=== PATIENT | female | born 1990 | race Caucasian/White ===

== ENCOUNTER 2021-02-10 15:13 | Emergency (ER) | payer OTHER, SELFPAY ==
--- NOTE | ~2021-02-10 | US_ITS ---
US pelvic complete w TV DATE: 02/10/2021 18:53 INDICATION: Right lower quadrant pain, vaginal bleeding. Asymmetric right ovarian enlargement on 01/20 CT abdomen pelvis examination TECHNIQUE: Real-time imaging and Doppler analysis COMPARISON: 02/10/2021 CT abdomen pelvis FINDINGS: The uterus measures 9.8 cm height, 6.6 cm transverse and 5.4 cm AP dimension. Central endom etrial echo complex measures 5 mm AP dimension. A 2.9 cm right ovarian cyst is noted. Right ovary measures 3.8 x 3.4 x 2.8 cm. The left ovary measures 2 x 1.7 x 2 cm. There is blood flow to both ovaries. IMPRESSION: 2.9 cm right ovarian cyst; no evidence of ovarian torsion Reviewed, dictated and finalized at [facility]. Reviewed, dictated and finalized at location A.
--- NOTE | ~2021-02-10 | CT_ITS ---
EXAMINATION: CT abdomen pelvis wo con DATE: 02/10/2021 17:12 INDICATION: Right lower quadrant abdominal pain TECHNIQUE: Computed tomography (CT) of the abdomen and pelvis was performed without intravenous contr ast. Automated exposure control and iterative reconstruction technique were employed. Exam dose: 133 4.07 mGy-cm total exam DLP. COMPARISON: None. FINDINGS: Lung bases are clear. Normal heart size. No pericardial or pleural effusion. The liver, gallbladder, bile ducts, spleen, pancreas, pancreatic duct, and adrenal glands and kidneys are unremarkable. No urinary tract calculus or hydroureteronephrosis. The urinary bladder and uterus and left adnexal areas are unremarkable. Asymmetric prominence of the right ovary which measures up to 2.8 x 3.6 cm dimension. Consider pelvic ultrasound for greater detail. Normal caliber of the abdominal aorta. No intraperitoneal or retroperitoneal or pelvic mass lesion or adenopathy or ascites. Normal appendix. No bowel obstruction, bowel wall thickening, pneumatosis or intraperitoneal free air . Small fat-containing umbilical hernia. Included skeletal structures are unremarkable. IMPRESSION: Nonspecific right ovarian enlargement, measuring up to 2.8 x 3.6 cm; consider pelvic ult rasound correlation Normal appendix Reviewed, dictated and finalized at [facility]. Reviewed, dictated and finalized at location A. IMPRESSION: Nonspecific right ovarian enlargement, measuring up to 2.8 x 3.6 c m; consider pelvic ultrasound correlation Normal appendix
[2021-02-10 15:29] VITALS: BP 140/93; PULSE 54; RESP 18; TEMP 36.6; O2SAT 100
--- NOTE | 2021-02-10 16:07 | ED.GENADULT ---
HPI - General Adult General Chief complaint: Vaginal Bleeding <Joy Gold PA-C - Last Filed: 02/10/21 19:36> Stated complaint: heavy vaginal bleeding, no <Joy Gold PA-C - Last Filed: 02/10/21 19:36> Time Seen by Provider: 02/10/21 15:53 <Joy Gold PA-C - Last Filed: 02/10/21 19:36> Source: patient <Joy Gold PA-C - Last Filed: 02/10/21 19:36> Mode of arrival: ambulatory <JOHANN Norris Last Filed: 02/10/21 19:36> Limitations: no limitations <Joy Gold PA-C - Last Filed: 02/10/21 19:36> History of Present Illness HPI narrative: Patient is here for heavy vaginal bleeding not associated with her period. It started yesterday has progressed from dark red to bright red blood with clots. Is associated with cramping and especially right lower quadrant pain. Her last period was 2 weeks ago. She she states that she also had other signs of such as breast tenderness and nausea. She took a test at home this morning and it was negative. She is not on any form of control, last intercourse was 1 week ago. She has had 2 prior sections. <Joy Gold PA-C - Last Filed: 02/10/21 19:36> Related Data Allergies/adverse reactions: Allergies Allergy/AdvReac Type Severity Reaction Status Date / Time No Known Allergies Allergy Verified 02/10/21 15:19 <Joy Gold PA-C - Last Filed: 02/10/21 19:36> Review of Systems Review of Systems: All systems reviewed & are unremarkable except as noted in HPI and below <Joy Gold PA-C - Last Filed: 02/10/21 19:36> [facility] Past Medical History Medical History: Medical History (Updated 02/11/21 @ 00:00 by Background Daemon) delivery delivered Elbow injury <JOHANN Norris Last Filed: 02/10/21 19:36> Social History Social History: Social History (Updated 02/10/21 @ 17:05 by Joy Gold PA-C) Smoking status: Never smoker Alcohol intake: never Substance use: never Living arrangements: with family Occupation/Education: occupation Additional occupation/education comments: real estate <Joy Gold PA-C - Last Filed: 02/10/21 19:36> Exam Const: General: healthy appearing, no acute distress and alert <Joy Gold PA-C - Last Filed: 02/10/21 19:36> Orientation/consciousness: patient oriented x3 <Joy Gold PA-C - Last Filed: 02/10/21 19:36> HENMT: Head: normal to inspection <Joy Gold PA-C - Last Filed: 02/10/21 19:36> Eyes: Pupils: Equal, round and reactive pupils present <Joy Gold PA-C - Last Filed: 02/10/21 19:36> Resp: Effort & Inspection: normal respiratory effort <Joy Gold PA-C - Last Filed: 02/10/21 19:36> Auscultation: clear to auscultation bilaterally <Joy Gold PA-C - Last Filed: 02/10/21 19:36> Cardio: Rate: regular rate <Joy Gold PA-C - Last Filed: 02/10/21 19:36> Rhythm: regular rhythm <Joy Gold PA-C - Last Filed: 02/10/21 19:36> GI: GI Palp: Yes Soft to palpation and Yes Tenderness to palpation present (GI) (RLQ) <Joy Gold PA-C - Last Filed: 02/10/21 19:36> Auscultation: normal bowel sounds <Joy Gold PA-C - Last Filed: 02/10/21 19:36> : General: Yes no CVA tenderness <Joy Gold PA-C - Last Filed: 02/10/21 19:36> External Female Exam: normal external appearance <JOHANN Norris Last Filed: 02/10/21 19:36> Speculum Exam - Vagina: other (old blood present) <Joy Gold PA-C - Last Filed: 02/10/21 19:36> Speculum Exam - Cervix: normal appearance of the cervix, normal palpation and Cervical os closed <Joy Gold PA-C - Last Filed: 02/10/21 19:36> Bimanual exam- vagina & uterus: normal bimanual exam <Joy Gold PA-C - Last Filed: 02/10/21 19:36> Bimanual Exam- Adnexa, other: normal adnexae and adnexae mobile <Joy Gold PA-C - Last Filed: 02/10/21 19:36> Sk
[2021-02-10 16:10] LABS: Basophils Absolute Auto 0.1 K/mm3 (0.0-0.1); Basophils Percent Auto 0.6 % (0.2-1.2); Eosinophils Absolute Auto 0.1 K/mm3 (0-0.3); Eosinophils Percent Auto 0.8 % (0-4.4); Hematocrit 41.9 % (37.0-47.0); Hemoglobin 14.1 g/dL (12.0-15.0); Immature Granulocyte Absolute 0.05 K/mm3 (0.00-0.031); Immature Granulocyte Percent A 0.4 % (0-0.5); Lymphocytes Percent Auto 30.2 % (18.3-44.2); Mean Corpuscular HGB Conc 33.7 g/dl (32-36); Mean Corpuscular Hemoglobin 30.1 pg (26-34); Mean Corpuscular Volume 89.5 fl (80-100); Mean Platelet Volume 10.2 fl (7.4-10.4); Monocytes Absolute Auto 0.9 K/mm3 (0.1-0.6); Monocytes Percent Auto 7.6 % (2.6-8.5); Neutrophils Absolute Auto 7.2 K/mm3 (1.3-6.7); Neutrophils Percent Auto 60.4 % (45.5-73.1); Platelet Count Result 327 k/mm3 (150-375); Red Blood Count 4.68 M/mm3 (4.2-5.4); Red Cell Distribution Width 12.8 % (11.5-14.5); White Blood Count 11.9 K/mm3 (4.5-10.0)
[2021-02-10 16:49] LABS: Beta HCG Quantitative < 2.39 mIU/ML
[2021-02-10] MEDS: ONDANSETRON INJ 4 MG/2 ML VIAL IV PUSH (18:15)
[2021-02-10 18:48] VITALS: BP 121/67; PULSE 62
[2021-02-10 18:49] VITALS: BP 122/81; PULSE 58
[2021-02-10 18:51] VITALS: BP 111/79; PULSE 66
== END 2021-02-10 20:22 | disposition home or self-care (01) ==
PROVIDERS: Physician Assistant; Emergency Provider General Practice; PCP Family Medicine
DX: N93.9 Abnormal uterine and vaginal bleeding, unspecified (principal); N83.201 Unspecified ovarian cyst, right side
CPT/HCPCS: 36415; 74176; 76830; 76856; 81025; 84702; 85025; 96374; 99284; J2405

== ENCOUNTER 2021-02-23 13:45 | Outpatient (CLI) | payer OTHER, SELFPAY ==
--- NOTE | ~2021-02-23 | US_ITS ---
EXAMINATION: US thyroid EXAM DATE: 02/23/2021 14:41 INDICATION: E07.9 - Disorder of thyroid, unspecified. TECHNIQUE: Multiple grayscale and Doppler images of the thyroid were obtained (by a technologist who performed the scan) and subsequently reviewed. Individual nodules and recommendations may be reporte d in accordance with TI-RADS system as designated by the 2017 ACR White Paper TI-RADS committee. The re is no prior study for comparison. FINDINGS: The right thyroid lobe measures 5.3 x 1.7 x 1.8 cm, the left measuring 4.0 x 1.1 x 0.7 cm. There is m ildly diffusely heterogeneous thyroid echogenicity with mild right thyroid lobe enlargement. There ar e no focal suspicious nodules. IMPRESSION: Mildly enlarged right thyroid lobe, otherwise unremarkable exam. Reviewed, dictated and finalized at location A.
== END 2021-02-23 13:46 | disposition home or self-care (01) ==
PROVIDERS: PCP Family Medicine; Visit Provider Family Medicine
DX: E04.1 Nontoxic single thyroid nodule (principal)
CPT/HCPCS: 76536

== ENCOUNTER 2023-07-18 13:27 | Emergency (ER) | payer OTHER, SELFPAY ==
--- NOTE | ~2023-07-18 | XR_ITS ---
EXAMINATION: XR chest 2V 07/18/2023 15:10 INDICATION: Fever and cough PROCEDURE: 2 view chest COMPARISON: No prior studies for comparison. FINDINGS: The lungs are clear. The cardiomediastinal silhouette is within normal limits. There are no pleural effusions. There is no pneumothorax suspected. IMPRESSION: 1: NO ACUTE CARDIOPULMONARY DISEASE. Reviewed, dictated and finalized at location B.
[2023-07-18 13:58] VITALS: BP 138/72; PULSE 98; RESP 20; TEMP 38.6; O2SAT 98
[2023-07-18 14:10] VITALS: RESP 14
[2023-07-18 14:54] LABS: Influenza A QL RT-PCR Negative (Negative); Influenza B QL RT-PCR Negative (Negative); RSV RNA, RT-PCR Negative (Negative); SARS-CoV-2 RNA PCR Negative (Negative)
[2023-07-18] MEDS: ACETAMINOPHEN 500 MG TABLET 1000 MG PO (15:19)
[2023-07-18] MEDS: KETOROLAC 30 MG/ML VIAL (*BKC) IM (15:31)
--- NOTE | 2023-07-18 15:36 | ED.FEVER ---
HPI - Fever General Chief Complaint: Fever Stated Complaint: fever Time Seen by Provider: 07/18/23 14:08 Source: patient Mode of arrival: ambulatory Limitations: no limitations History of Present Illness HPI Narrative: This is a 33 year old female that presents to the ER for cold symptoms present over the last couple of days. Reports fever, cough, congestion, rhinorrhea, headache and myalgias. Denies shortness of breath. Related Data Allergies Allergy/AdvReac Type Severity Reaction Status Date / Time No Known Allergies Allergy Verified 02/13/21 15:24 Review of Systems Review of Systems: CONSTITUTIONAL: Reports fever ENT: Reports rhinorrhea, congestion. Denies sore throat RESPIRATORY: Reports cough. Denies dyspnea. GASTROINTESTINAL: Reports nausea. Denies vomiting, or diarrhea. All systems reviewed & are unremarkable except as noted in HPI and below PMFSH Past Medical History Medical History Allergies Anxiety delivery delivered Elbow injury Thyroid disorder Family History Family History Father Hypertension Grandparent Alcoholism Cancer Social History Social History Smoking status: Never smoker Alcohol intake: current Drinks per week: 1 Alcohol use details: beer/wine Substance use: current Living arrangements: with family Occupation/Education: occupation Additional occupation/education comments: real estate Gender identity (if verbalized by the patient): Female Sexual Orientation (if Verbalized by the Patient): Straight or Heterosexual Exam Narrative: GENERAL: Well-appearing, well-nourished, and in no acute distress. HEAD: Normocephalic, atraumatic. EYES: PERRLA and EOMI. ENT: Nares clear, no rhinorrhea or epistaxis. Mucous membranes moist. Oropharynx without tonsillar hypertrophy exudate or other lesions. Bilateral TMs pearly davis non-bulging NECK: Supple. No adenopathy or masses. CHEST: Clear to auscultation. No respiratory distress. No wheezes rales or rhonchi HEART: Regular rate and rhythm. No murmur heard. Normal peripheral pulses. EXTREMITIES: Normal range of motion. No edema. SKIN: Warm, dry, no rash. NEURO: No focal deficits. Alert and oriented x3. Cranial nerves 2-12 grossly intact. Normal gait PSYCH: Normal mood and affect Course SKIN CARE CONSULTANT/PA Physician Supervision patient updated on her workup and agrees with plan of care Vital Signs Vital signs: Vital Signs Temperature 101.4 F H 07/18/23 13:58 Pulse Rate 98 07/18/23 13:58 Respiratory Rate 20 07/18/23 13:58 Blood Pressure 138/72 07/18/23 13:58 Pulse Oximetry 98 07/18/23 13:58 Oxygen Delivery Room Air 07/18/23 13:58 Temperature 98.5 F 07/18/23 15:49 Pulse Rate 75 07/18/23 15:49 Respiratory Rate 15 07/18/23 15:49 Blood Pressure 107/64 07/18/23 15:49 Pulse Oximetry 100 07/18/23 15:49 Oxygen Delivery Room Air 07/18/23 13:58 MDM - Fever MDM Narrative Medical decision making narrative: Patient presents to the emergency department for cold symptoms present over the last couple of days. Febrile upon arrival, given antipyretics with relief. Other vitals are normal. CBC without leukocytosis. Metabolic panel with mild transaminitis. Lipase is normal. UA without evidence of infection. Influenza, RSV, and COVID screens are negative. Bedside test is negative. Chest x-ray without acute cardiopulmonary abnormality. Patient was instructed on further care a viral infection. She is to follow up with her primary provider. She was given warnings to return to the ER Differential Diagnosis Differential diagnosis: Likely fever of unknown origin, community acquired pneumonia, viral infection, influenza and other (covid, RSV) Lab Data Attestation: I reviewed the patient's lab results. 07/18/23 16:14
[2023-07-18 15:49] VITALS: BP 107/64; PULSE 75; RESP 15; TEMP 36.9; O2SAT 100
[2023-07-18 15:59] LABS: Appearance Urine Cloudy (Clear); Bacteria Urine None Seen /hpf; Bilirubin Urine 1+ (Negative); Blood Urine Negative (Negative); Color Urine Dark Yellow (Yellow); Glucose Urine UA Negative (Negative); Ketones Urine 2+ mg/dL (Negative); Leukocyte Esterase Ur Trace LEU/UL (Negative); Need Manual Microscopic Reviewed; Nitrate Urine Negative (Negative); Protein Urine 1+ mg/dL (Negative); Squamous Epithelial Cell Urine Few /hpf (Few); WBC Urine 0-5 /hpf (0-3)
[2023-07-18 16:00] LABS: Specific Grav Ur 1.033 (1.001-1.035)
[2023-07-18 16:01] LABS: Add Urine Microscopic? YES
[2023-07-18 16:26] LABS: Basophils Percent Auto 0.4 % (0.2-1.2); Hematocrit 43.5 % (37.0-47.0); Immature Granulocyte Absolute 0.02 K/mm3 (0.00-0.031); Immature Granulocyte Percent A 0.4 % (0-0.5); Lymphocytes Absolute Auto 0.84 K/mm3 (0.9-3.2); Lymphocytes Percent Auto 17.2 % (18.3-44.2); Mean Corpuscular HGB Conc 34.5 g/dl (32-36); Mean Platelet Volume 9.4 fl (7.4-10.4); Monocytes Absolute Auto 0.1 K/mm3 (0.1-0.6); Monocytes Percent Auto 2.7 % (2.6-8.5); Neutrophils Absolute Auto 3.9 K/mm3 (1.3-6.7); Neutrophils Percent Auto 79.3 % (45.5-73.1); Platelet Count Result 201 k/mm3 (150-375); Red Cell Distribution Width 13.1 % (11.5-14.5); White Blood Count 4.9 K/mm3 (4.5-10.0)
[2023-07-18 16:33] LABS: Alanine Aminotransferase 56 U/L (6-35); Albumin Level 4.2 g/dL (3.5-5.1); Alkaline Phosphatase 71 U/L (38-126); Anion Gap 5 mmol/L (4-12); Aspartate Amino Transferase 59 U/L (14-36); Bilirubin,Total 0.5 mg/dL (0.2-1.3); Blood Urea Nitrogen 10 mg/dL (7-17); Calcium 8.8 mg/dL (8.4-10.2); Carbon Dioxide 26 mmol/L (22-30); Chloride 103 mmol/L (98-107); Estimated CRCL calculation 109 ml/min; Estimated Glomerular Filt Rate > 60; Glucose 101 mg/dL (65-110); Potassium 3.8 mmol/L (3.4-5.0); Sodium 134 mmol/L (137-145)
--- NOTE | 2023-07-18 17:04 | PC.NURSE ---
Lab called to add on blood work
[2023-07-18 17:14] LABS: Lipase 61 U/L (23-300)
[2023-07-18 17:52] VITALS: BP 101/65; PULSE 81; RESP 15; TEMP 37; O2SAT 100
== END 2023-07-18 17:54 | disposition home or self-care (01) ==
PROVIDERS: Emergency Medicine; Emergency Provider Physician Assistant; Referring Provider Emergency Medicine
DX: B34.9 Viral infection, unspecified (principal); Z20.822 Contact with and (suspected) exposure to COVID-19; E07.9 Disorder of thyroid, unspecified
CPT/HCPCS: 36415; 71046; 80053; 81001; 81025; 83690; 85025; 87637; 96372; 99283; A9270; J1885

== ENCOUNTER 2024-06-23 12:55 | Observation (INO) | payer OTHER, SELFPAY ==
--- NOTE | ~2024-06-23 | CT_ITS ---
EXAMINATION: CT abdomen pelvis w con DATE: 06/24/2024 11:15 INDICATION: Severe right upper quadrant pain and tenderness TECHNIQUE: Computed tomography (CT) of the abdomen and pelvis was performed with 100 mL Omnipaque-350 intravenous contrast. Automated exposure control and iterative reconstruction technique were employe d. The dose-length product was 1124.74 mGy-cm. COMPARISON: 02/10/2021 FINDINGS: Lung bases are clear. Heart size is normal. No pericardial or pleural effusion. Liver, gallbladder, s pleen, pancreas, bilateral adrenal glands and kidneys are normal. Large amount of stool throughout th e colon which could be seen with constipation. Small bowel and appendix are normal. Bladder and bilat eral adnexa are unremarkable. T-shaped IUD within the anteverted uterus. There appears to be bending of the distal stem of the IUD with oblique configuration of the cross limbs. The left-sided cross hui b appears to project peripherally into the myometrium at the left side of the uterine body. Trace jesus unt of likely physiologic free fluid in the pelvis. No pathologically enlarged abdominal or pelvic ly mphadenopathy. Mild lower thoracic spondylosis. IMPRESSION: 1. Large amount of colonic stool which could be seen with constipation. No other evident acute intra- abdominal/pelvic process. 2. Irregular configuration of a T-shaped IUD within the anteverted uterus with the left-sided cross l imbs appearing to extend more peripherally into the myometrium at the left side of the uterine body. Reviewed, dictated and finalized at location L. [employer] DEVELOPER IMPRESSION: 1. Large amount of colonic stool which could be seen with constipation. No othe r evident acute intra-abdominal/pelvic process. 2. Irregular configuration of a T-shaped IUD within the anteverted uterus with the left-sided cross limbs appearing to extend more peripherally into the myome trium at the left side of the uterine body.
--- NOTE | ~2024-06-23 | NM_ITS ---
EXAMINATION: NM hepatobiliary w pharm DATE: 06/24/2024 11:21 INDICATION: Right upper quadrant abdominal pain. COMPARISON: Ultrasound dated 06/23/2024 TECHNIQUE: 5.1 mCi Tc-99m mebrofenin (Choletec) was administered intravenously. Scintigraphic images of the abdomen were obtained for one hour. 2 mcg sincalide (Kinevac) was administered by slow intrav enous infusion, and imaging was continued for 30 minutes. Gallbladder ejection fraction was calculate d by the technologist. FINDINGS: There is normal clearance of radiotracer from the blood pool. There is homogeneous tracer uptake by t he liver. Activity progresses to the gallbladder and bowel. The gallbladder ejection fraction (GBEF) is 6% (normal 10-90%, but most patient with gallbladder dysfunction have GBEF < 35% which does overl ap with the normal range). IMPRESSION: 1. Gallbladder ejection fraction below the normal range which would be consistent with either gallbl adder dysfunction or chronic cholecystitis in the appropriate clinical setting. Reviewed, dictated and finalized at location L. [facility] [employer] IMPRESSION: 1. Gallbladder ejection fraction below the normal range which would be consist ent with either gallbladder dysfunction or chronic cholecystitis in the appropr iate clinical setting.
--- NOTE | ~2024-06-23 | US_ITS ---
EXAMINATION: US right upper quadrant DATE: 06/23/2024 14:31 INDICATION: Abdominal pain. Nausea. TECHNIQUE: Multiple grayscale and Doppler ultrasound images of the abdomen were obtained. COMPARISON: CT abdomen and pelvis 02/10/2021 FINDINGS: The visualized portions of the head and body of pancreas are normal. The liver is normal wi thout focal lesion. There is normal flow in main portal vein. The gallbladder is normal in size. No g allstones or gallbladder wall thickening. There was a positive sonographic Gustafson's sign. The common duct is normal and measures 5 mm. IMPRESSION: 1. Normal right upper quadrant ultrasound. No etiology for the positive sonographic Gustafson sign. Reviewed, dictated and finalized at location A. LER IMPRESSION: 1. Normal right upper quadrant ultrasound. No etiology for the positive sonogra phic Gustafson sign.
[2024-06-23 13:07] VITALS: BP 121/63; PULSE 70; RESP 16; TEMP 36.6; O2SAT 100
--- NOTE | 2024-06-23 13:38 | ED.ABDPAIN ---
HPI - Abdominal Pain General Chief Complaint: Abdominal Pain Stated Complaint: Upper abdominal pain-poss GB Time Seen by Provider: 06/23/24 13:29 History of Present Illness HPI narrative: Patient is a 34-year-old female who presents ER with right upper quadrant abdominal pain. Ongoing over last week but worsening over last couple days. Sharp and radiates into the right back. Associated with nausea but no vomiting. No diarrhea or constipation. No association with eating or drinking. No alleviating factors. Sent from urgent care for evaluation. Related Data Home Medications ?Medication ?Instructions ?Recorded ?Confirmed ?Last Taken ?Type No Home Medications 06/23/24 06/23/24 Unknown History Allergies Allergy/AdvReac Type Severity Reaction Status Date / Time morphine Allergy Intermediate Itching Verified 06/23/24 19:09 Review of Systems Review of Systems: All systems reviewed & are unremarkable except as noted in HPI and below Constitutional: Constitutional: Reports no additional constitutional complaints ENT: Reports system reviewed and no additional complaints, except as documented Cardiovascular: Cardiovascular: Reports no additional cardiovascular complaints Respiratory: Respiratory: Reports no additional respiratory complaints Gastrointestinal: Gastrointestinal: Reports no additional gastrointestinal complaints [facility] Past Medical History Medical History Depression Anxiety Allergies Elbow injury delivery delivered Surgical History Surgical History History of section Family History Family History Father Hypertension Grandparent Alcoholism Cancer Social History Social History Smoking status: Current every day smoker Tobacco type: e-cigarettes/vaping Alcohol intake: current Drinks per week: 4 Alcohol use details: beer/wine Substance use: current Do You Feel Safe in your Home?: Yes Lack of Transportation: No Lack of Food: Never True Current Housing: I Have Housing Concerned About Future Housing: No Difficulty Paying Gas/Electric Bills: No Difficulty Paying for Meds: No Currently Unemployed: No Education: Bachelor's Degree Difficulty w/ Childcare or Family Care: No Living arrangements: with family Occupation/Education: occupation Additional occupation/education comments: real estate Gender identity (if verbalized by the patient): Female Sexual Orientation (if Verbalized by the Patient): Straight or Heterosexual Spiritual care concerns: No Exam Narrative: GENERAL: Well-appearing, well-nourished, and in no acute distress. HEAD: Normocephalic, atraumatic. ENT: Mucous membranes moist. CHEST: Clear to auscultation. No respiratory distress. HEART: Regular rate and rhythm. Normal peripheral pulses. ABDOMEN: Soft, tender to palpation right upper quadrant with guarding, nondistended. EXTREMITIES: Normal range of motion. No edema. SKIN: Warm, dry, no rash. NEURO: Alert and oriented x3. PSYCH: Normal mood and affect. Course Course Emergency Course: Persistent pain despite negative workup. Will admit for observation and HIDA scan. GI consulted. Vital Signs Vital signs: Vital Signs Temperature 97.9 F 06/23/24 13:07 Pulse Rate 70 06/23/24 13:07 Respiratory Rate 16 06/23/24 13:07 Blood Pressure 121/63 06/23/24 13:07 Pulse Oximetry 100 06/23/24 13:07 Oxygen Delivery Room Air 06/23/24 13:07 Temperature 97.1 F L 06/23/24 20:56 Pulse Rate 59 L 06/23/24 20:56 Respiratory Rate 14 06/23/24 20:56 Blood Pressure 107/67 06/23/24 20:56 Pulse Oximetry 96 06/23/24 20:56 Oxygen Delivery Room Air 06/23/24 13:07 MDM - Abdominal Pain Lab Data 06/23/24 13:33 06/23/24 13:33 Labs: Lab Results 06/23/24 06/23/24 Range/Units 13:33 13:38 WBC 7.5 (4.5-10.0) K/mm3 RBC 5.02 (4.2-5.4) M/mm3 Hgb 15.0 (12.0-15.0) g/dL Hct 45.6 (37.0-47.0) % MCV 90.8 (80-100) fl MCH 29.9 (26-34) pg MCHC 32.9 (32-36) g/dl RDW 13.7 (11.5-14.5) % Plt Count 325 D (150-375) k/mm3 MPV 10.0 (7.4-10.4) fl Immature Gran % (Auto) 0.4 (0-0.5) % Neut % (Auto) 63.8 (45.5-73.1) % Lymph % (Auto) 23.1 (18.3-44.2) % Rapides % (Auto) 10.6 H (2.6-8.5) % Eos % (Auto) 1.7 (0-4.4) % Baso % (Auto) 0.4 (0.2-1.2) % Lymph # (Auto) 1.72 (0.9-3.2) K/mm3 Rapides # (Auto) 0.8 H (0.1-0.6) K/mm3 Eos # (Auto) 0.1 (0-0.3) K/mm3 Baso # (Auto) 0.0 (0.0-0.1) K/mm3 Abs Immat Gran (auto) 0.03 (0.00-0.031) K/mm3 Absolute Neuts (auto) 4.8 (1.3-6.7) K/mm3 Absolute Nucleated RBC 0.000 (0.0-0.012) K/mm3 Nucleated RBC % 0.0 (0.0-0.2) % Sodium 139 (137-145) mmol/L Potassium 3.9 (3.4-5.0) mmol/L Chloride 103 (98-107) mmol/L Carbon Dioxide 26 (22-30) mmol/L Anion Gap 10 (4-12) mmol/L BUN 13 (7-17) mg/dL Creatinine 0.74 (0.7-1.0) mg/dL Estim Creat Clear Calc 118 ml/min Estimated GFR > 60 (59 - ) Glucose 90 (65-110) mg/dL Calcium 9.2 (8.4-10.2) mg/dL Total Bilirubin 0.4 (0.2-1.3) mg/dL AST 23 (14-36) U/L ALT 17 (6-35) U/L Alkaline Phosphatase 63 (38-126) U/L Total Protein 8.0 (6.3-8.2) g/dL Albumin 4.5 (3.5-5.1) g/dL Lipase 100 (23-300) U/L Urine Color Yellow (Yellow) Urine Appearance Clear (Clear) Urine pH 5.5 (5.0-9.0) Ur Specific [place] 1.021 (1.001-1.035) Urine Protein Negative (Negative) mg/dL Urine Glucose (UA) Negative (Negative) mg/dL Urine Ketones Negative (Negative) mg/dL Ur Blood (Man) Negative (Negative) Urine Nitrate Negative (Negative) Urine Bilirubin Negative (Negative) Urine Urobilinogen 0.2 (<2.0) mg/dL Leukocyte Esterase Rfl Negative (Negative) ZABRINA/UL Urine Test Negative Imaging Data Radiologist's impression: ITS Impressions Upper Quadrant Ultrasound 06/23/24 14:32 IMPRESSION: 1. Normal right upper quadrant ultrasound. No etiology for the positive sonographic Gustafson sign. Discharge Plan Discharge Clinical Impression: Intractable right upper quadrant abdominal pain Patient Disposition: Still a Patient Condition: Stable
[2024-06-23] MEDS: MORPHINE SULFATE (*CRX) 4 MG/ML INJ IV PUSH ×2 (13:49→18:26)
[2024-06-23] MEDS: ONDANSETRON INJ 4 MG/2 ML VIAL IV PUSH (13:49)
[2024-06-23 13:53] VITALS: BP 123/74; PULSE 61; RESP 16; O2SAT 100
[2024-06-23 13:53] LABS: Add Urine Microscopic? NO; Appearance Urine Clear (Clear); Bilirubin Urine Negative (Negative); Blood Urine Negative (Negative); Color Urine Yellow (Yellow); Glucose Urine UA Negative (Negative); Ketones Urine Negative (Negative); Leukocyte Esterase Ur Negative LEU/UL (Negative); Nitrate Urine Negative (Negative); Protein Urine Negative (Negative); Specific Grav Ur 1.021 (1.001-1.035); Urobilinogen Urine 0.2 mg/dL (<2.0); pH Urine 5.5 (5.0-9.0)
[2024-06-23] MEDS: SODIUM CHLORIDE 0.9% IV 1,000 ML 999 ML IV CONT (13:53)
[2024-06-23 14:06] LABS: Pregnancy On Board Control Positive; Urine Pregnancy Test Negative
[2024-06-23 14:08] LABS: Basophils Percent Auto 0.4 % (0.2-1.2); Eosinophils Absolute Auto 0.1 K/mm3 (0-0.3); Eosinophils Percent Auto 1.7 % (0-4.4); Hematocrit 45.6 % (37.0-47.0); Immature Granulocyte Absolute 0.03 K/mm3 (0.00-0.031); Immature Granulocyte Percent A 0.4 % (0-0.5); Lymphocytes Absolute Auto 1.72 K/mm3 (0.9-3.2); Lymphocytes Percent Auto 23.1 % (18.3-44.2); Mean Corpuscular HGB Conc 32.9 g/dl (32-36); Mean Corpuscular Hemoglobin 29.9 pg (26-34); Mean Corpuscular Volume 90.8 fl (80-100); Monocytes Absolute Auto 0.8 K/mm3 (0.1-0.6); Monocytes Percent Auto 10.6 % (2.6-8.5); Neutrophils Absolute Auto 4.8 K/mm3 (1.3-6.7); Neutrophils Percent Auto 63.8 % (45.5-73.1); Platelet Count Result 325 k/mm3 (150-375); Red Blood Count 5.02 M/mm3 (4.2-5.4); Red Cell Distribution Width 13.7 % (11.5-14.5); White Blood Count 7.5 K/mm3 (4.5-10.0)
--- OUTSIDE RECORDS SUMMARY | 2024-06-23 14:11 | XMS_ITS | Referral Summary ---
Author Organization [facility] Address [address] [address] Care Team Providers Care Mobile Qa Tester Name Role Phone Unavailable Primary Care Provider Unavailabl e Source Comments [facility],non-owned Affiliates and Associated Physician Practices is amultiple site organization consisting of ambulatory clinics and hospital sitesin [place], [place], [place] and [place]. This disclosure is being madepursuant to the Care Everywhere program and may not contain all information available regarding this patient. Last updated 18.[facility] Allergies No known active allergies Medications Be aware that medications may not be up to date on this document. Always verify current medications with the patient. No known medications Social History Tobacco Use Types Packs/Day Years Used Date Smoking Tobacco: Never Smokeless Tobacco: Never Sex and Gender Information Value Date Recorded Sex Assigned at Not on file Gender Identity Not on file Sexual Orientation Not on file Last Filed Vital Signs Vital Sign Reading Time Taken Comments Blood Pressure 120/80 05/13/2018 12:18 PM [employer] Pulse 65 05/13/2018 12:18 PM [employer] Temperature 37.2 C (98.9 F) 05/13/2018 12:18 PM [employer] Respiratory Rate 20 05/13/2018 12:18 PM [employer] Oxygen Saturation 99% 05/13/2018 12:18 PM [employer] Inhaled Oxygen Concentration - - Weight 90.7 kg (200 lb) 05/13/2018 12:18 PM [employer] Height 175.3 cm (5' 9 ) 05/13/2018 12:18 PM [employer] Body Mass Index 29.53 05/13/2018 12:18 PM [employer] Plan of Treatment Not on file [id number] Workers Comp Employer [address] [place] [address]
--- OUTSIDE RECORDS SUMMARY | 2024-06-23 14:11 | XMS_ITS | Clinical Summary ---
Author Organization [facility] Address [address] [place] [id number] Care Team Providers Care Sheet Metal Engineer Name Role Phone Unavailable Primary Care Provider Unavailabl e Social History Tobacco Use Types Packs/Day Years Used Date Smoking Tobacco: Never Assessed Comments Unknown Sex and Gender Information Value Date Recorded Sex Assigned at Not on file Legal Sex Female 5:49 PM CDT Gender Identity Not on file Sexual Orientation Not on file Plan of Treatment Health Maintenance Due Date Last Done Comments Cervical Cancer Screening Pa p Smear (Age 30 to 64) Every 3 Years 1989 Annual Physical 01/28/1992 Hepatitis C 2007 DTaP, Tdap and Td Vaccines ( 1 - Tdap) 01/28/2008 Hepatitis B Vaccines (1 of 3 - 19+ 3-dose series) 01/28/2008 Cervical Cancer Screening Pa p with HPV Testing (Age 30 to 64) Every 5 Years 2019 Cervical Cancer Screening with HPV 2019 COVID-19 Vaccine (2023-2 5 season) 2023 Influenza Adult (#1) 2024 HPV Vaccines Aged Out No longer eligi ble based on patient's age to complete this topic Meningococcal B Vaccine Aged Out No l onger eligible based on patient's age to complete this topic Meningococcal Vaccine Aged Out No magdalena imna eligible based on patient's age to complete this topic Pneumococcal Vaccine: Pediat rics (0 to 5 Years) and At-Risk Patients (6 to 64 Years) Aged Out No longer eligible b ased on patient's age to complete this topic RSV Immunizations Under 20 Months Aged Out No longer eligible based on patient's age to complete this topic
--- OUTSIDE RECORDS SUMMARY | 2024-06-23 14:11 | XMS_ITS | Clinical Summary ---
Author Organization [facility] [employer] Address [address] [place] [address] Care Team Providers Care Milk Vendor Name Role Phone Unavailable Primary Care Provider Unavailabl e Source Comments [facility] [facility],non-owned Affiliates and Associated Physician Practices is amultiple site organization consisting of ambulatory clinics and hospital sitesin [place], [place], [place] and [place]. This disclosure is being madepursuant to the Care Everywhere program and may not contain all information available regarding this patient. Last updated 18.[facility] [employer] Allergies No known active allergies Medications Be [...] Comments Blood Pressure 120/80 05/13/2018 12:18 PM HOTEL DESK CLERK Pulse 65 05/13/2018 12:18 PM HOTEL DESK CLERK Temperature 37.2 C (98.9 F) 05/13/2018 12:18 PM HOTEL DESK CLERK Respiratory Rate 20 05/13/2018 12:18 PM HOTEL DESK CLERK Oxygen Saturation 99% 05/13/2018 12:18 PM HOTEL DESK CLERK Inhaled Oxygen Concentration - - Weight 90.7 kg (200 lb) 05/13/2018 12:18 PM HOTEL DESK CLERK Height 175.3 cm (5' 9 ) 05/13/2018 12:18 PM HOTEL DESK CLERK Body Mass Index 29.53 05/13/2018 12:18 PM HOTEL DESK CLERK Plan of Treatment Health Maintenance Due Date Last Done Comments PAP SMEAR 1989 HIV SCREENING 01/28/2004 HEPATITIS C SCREENING 01/23/2007 DTAP/TDAP/TD VACCINES (1 - Tdap) 01/28/2008 HEPATITIS B VACCINE (1 of 3 - 19+ 3-dose series) 01/28/2008 COVID-19 VACCINE (2023-2 5 season) 2023 INFLUENZA VACCINE (#1) 2023 DEPRESSION SCREENING 04/21/2024 ZOSTER VACCINE (1 of 2) 2039 HIB VACCINE Aged Out No longer eligi ble based on patient's age to complete this topic HPV VACCINE Aged Out No longer eligi ble based on patient's age to complete this topic MENINGOCOCCAL (Group B) VACCINE Aged Out No longer eligible based on patient's age to complete this topic MENINGOCOCCAL VACCINE Aged Out No magdalena iman eligible based on patient's age to complete this topic PNEUMOCOCCAL VACCINE Aged Out No long er eligible based on patient's age to complete this topic [id number] Workers Comp Employer [address] [place] [address]
--- OUTSIDE RECORDS SUMMARY | 2024-06-23 14:11 | XMS_ITS | Patient Health Summary ---
Author Organization [facility] [employer] Address [address] [place] [address] Care Team Providers Care Motor Adjuster Name Role Phone Unavailable Primary Care Provider Unavailabl e Note from [facility],non-owned Affiliates and Associated Physician Practices is amultiple site organization consisting of ambulatory clinics and hospital sitesin [place], [place], [place] and [place]. This disclosure is being madepursuant to the Care Everywhere program and may not contain all information available regarding this patient. Last updated 18.[facility] [employer] Allergies No known active allergies Medications Be [...] Comments Blood Pressure 120/80 05/13/2018 12:18 PM OFFICE RENTAL CLERK Pulse 65 05/13/2018 12:18 PM OFFICE RENTAL CLERK Temperature 37.2 C (98.9 F) 05/13/2018 12:18 PM OFFICE RENTAL CLERK Respiratory Rate 20 05/13/2018 12:18 PM OFFICE RENTAL CLERK Oxygen Saturation 99% 05/13/2018 12:18 PM OFFICE RENTAL CLERK Inhaled Oxygen Concentration - - Weight 90.7 kg (200 lb) 05/13/2018 12:18 PM OFFICE RENTAL CLERK Height 175.3 cm (5' 9 ) 05/13/2018 12:18 PM OFFICE RENTAL CLERK Body Mass Index 29.53 05/13/2018 12:18 PM OFFICE RENTAL CLERK Procedures * XR SHOULDER LEFT 2VW OR MORE(Performed 05/13/2018) Performed for Acute pain of left shoulder Results * XR SHOULDER LEFT 2VW OR MORE (05/13/2018 12:07 PM OFFICE RENTAL CLERK) Anatomical Region Laterality Modality Upper Extremity Radiographic Jess ging 05/13/2018 12:1 1 PM OFFICE RENTAL CLERK Narrative 05/13/2018 12:12 PM OFFICE RENTAL CLERK Left Shoulder 3 Views INDICATION: Left shoulder pain FINDINGS: No fracture or malalignment is seen. Visible lungs are clear. Reading Radiologist: Mary Patel MD on 05/13/2018 at 12:12 PM Procedure Note Mary Patel MD - 05/13/2018 Left Shoulder 3 Views INDICATION: Left shoulder pain FINDINGS: No fracture or malalignment is seen. Visible lungs are clear. Reading Radiologist: Mary Patel MD on 05/13/2018 at 12:12 PM Claritza Moura APRN-PIPELINE INTEGRITY ENGINEER DIAGNOS TIC IMAGING ORDERABLES
[2024-06-23 15:12] LABS: Alanine Aminotransferase 17 U/L (6-35); Albumin Level 4.5 g/dL (3.5-5.1); Alkaline Phosphatase 63 U/L (38-126); Anion Gap 10 mmol/L (4-12); Aspartate Amino Transferase 23 U/L (14-36); Bilirubin,Total 0.4 mg/dL (0.2-1.3); Blood Urea Nitrogen 13 mg/dL (7-17); Calcium 9.2 mg/dL (8.4-10.2); Carbon Dioxide 26 mmol/L (22-30); Chloride 103 mmol/L (98-107); Estimated CRCL calculation 118 ml/min; Estimated Glomerular Filt Rate > 60; Glucose 90 mg/dL (65-110); Lipase 100 U/L (23-300); Potassium 3.9 mmol/L (3.4-5.0); Sodium 139 mmol/L (137-145)
--- OUTSIDE RECORDS SUMMARY | 2024-06-23 15:15 | XMS_ITS | Referral Summary ---
Author Organization [facility] Address [address] [place] [address] Care Team Providers Care Goodwill Representative Name Role Phone Unavailable Primary Care Provider Unavailabl e Source Comments [facility] [employer],non-owned Affiliates and Associated Physician Practices is amultiple site organization consisting of ambulatory clinics and hospital sitesin [place], [place], [place] and [place]. This disclosure is being madepursuant to the Care Everywhere program and may not contain all information available regarding this patient. Last updated 18.[facility] [employer] Allergies No known active allergies Medications Be [...] Comments Blood Pressure 120/80 05/13/2018 12:18 PM AUTOTRANSFUSIONIST Pulse 65 05/13/2018 12:18 PM AUTOTRANSFUSIONIST Temperature 37.2 C (98.9 F) 05/13/2018 12:18 PM AUTOTRANSFUSIONIST Respiratory Rate 20 05/13/2018 12:18 PM AUTOTRANSFUSIONIST Oxygen Saturation 99% 05/13/2018 12:18 PM AUTOTRANSFUSIONIST Inhaled Oxygen Concentration - - Weight 90.7 kg (200 lb) 05/13/2018 12:18 PM AUTOTRANSFUSIONIST Height 175.3 cm (5' 9 ) 05/13/2018 12:18 PM AUTOTRANSFUSIONIST Body Mass Index 29.53 05/13/2018 12:18 PM AUTOTRANSFUSIONIST Plan of Treatment Not on file [id number] Workers Comp Employer [address] [place] [address]
--- OUTSIDE RECORDS SUMMARY | 2024-06-23 15:15 | XMS_ITS | Clinical Summary ---
Author Organization [facility] Address [address] [place] [id number] Care Team Providers Care Advanced Practice Psychiatric Nurse Name Role Phone Unavailable Primary Care Provider [...] topic Meningococcal Vaccine Aged Out No magdalena iman eligible based [...]
--- OUTSIDE RECORDS SUMMARY | 2024-06-23 15:15 | XMS_ITS | Clinical Summary ---
Author Organization [facility] [employer] Address [address] [place] [address] Care Team Providers Care Crown Ceramist Name Role Phone Unavailable Primary Care Provider Unavailabl e Source Comments [facility] [employer],non-owned Affiliates and Associated Physician Practices is amultiple site organization consisting of ambulatory clinics and hospital sitesin [place], [place], [place] and [place]. This disclosure is being madepursuant to the Care Everywhere program and may not contain all information available regarding this patient. Last updated 18.[facility] [employer] Allergies No known active allergies Medications Be [...] Comments Blood Pressure 120/80 05/13/2018 12:18 PM NAPHTHA WASHING SYSTEM OPERATOR Pulse 65 05/13/2018 12:18 PM NAPHTHA WASHING SYSTEM OPERATOR Temperature 37.2 C (98.9 F) 05/13/2018 12:18 PM NAPHTHA WASHING SYSTEM OPERATOR Respiratory Rate 20 05/13/2018 12:18 PM NAPHTHA WASHING SYSTEM OPERATOR Oxygen Saturation 99% 05/13/2018 12:18 PM NAPHTHA WASHING SYSTEM OPERATOR Inhaled Oxygen Concentration - - Weight 90.7 kg (200 lb) 05/13/2018 12:18 PM NAPHTHA WASHING SYSTEM OPERATOR Height 175.3 cm (5' 9 ) 05/13/2018 12:18 PM NAPHTHA WASHING SYSTEM OPERATOR Body Mass Index 29.53 05/13/2018 12:18 PM NAPHTHA WASHING SYSTEM OPERATOR Plan of Treatment Health Maintenance Due Date [...] on patient's age to complete this topic [id number] Workers Comp Employer [address] [place] [address]
--- OUTSIDE RECORDS SUMMARY | 2024-06-23 15:15 | XMS_ITS | Patient Health Summary ---
Author Organization [facility] [employer] Address [address] [address] Care Team Providers Care Hop Trainer Name Role Phone Unavailable Primary Care Provider Unavailabl e Note from [facility],non-owned Affiliates and Associated Physician Practices is amultiple site organization consisting of ambulatory clinics and hospital sitesin [place], [place], [place] and [place]. This disclosure is being madepursuant to the Care Everywhere program and may not contain all information available regarding this patient. Last updated 18.[facility] [employer] Allergies No known active allergies Medications Be [...] Comments Blood Pressure 120/80 05/13/2018 12:18 PM GROUP HOME MANAGER Pulse 65 05/13/2018 12:18 PM GROUP HOME MANAGER Temperature 37.2 C (98.9 F) 05/13/2018 12:18 PM GROUP HOME MANAGER Respiratory Rate 20 05/13/2018 12:18 PM GROUP HOME MANAGER Oxygen Saturation 99% 05/13/2018 12:18 PM GROUP HOME MANAGER Inhaled Oxygen Concentration - - Weight 90.7 kg (200 lb) 05/13/2018 12:18 PM GROUP HOME MANAGER Height 175.3 cm (5' 9 ) 05/13/2018 12:18 PM GROUP HOME MANAGER Body Mass Index 29.53 05/13/2018 12:18 PM GROUP HOME MANAGER Procedures * XR SHOULDER LEFT 2VW OR MORE(Performed 05/13/2018) Performed for Acute pain of left shoulder Results * XR SHOULDER LEFT 2VW OR MORE (05/13/2018 12:07 PM GROUP HOME MANAGER) Anatomical Region Laterality Modality Upper Extremity Radiographic Jess ging 05/13/2018 12:1 1 PM GROUP HOME MANAGER Narrative 05/13/2018 12:12 PM GROUP HOME MANAGER Left Shoulder 3 Views INDICATION: Left shoulder [...] on 05/13/2018 at 12:12 PM Claritza Moura APRN-DIRECTOR DATA MANAGEMENT DIAGNOS TIC IMAGING ORDERABLES
[2024-06-23] MEDS: HYDROmorphone HCL INJ (*CRX) 1 MG/ML SYR 0.5 MG IV PUSH (15:40)
[2024-06-23 15:44] VITALS: BP 112/64; PULSE 58; RESP 18; O2SAT 100
--- NOTE | 2024-06-23 16:50 | PM.IMHP ---
H&P: HPI History of Present Illness Date/Time: 06/23/24 16:50 Chief Complaint: Abdominal Pain Narrative: 34 y/o F presents here with abdominal pain with PMH of anxiety and depression. The patient presents here from a local urgent care for further evaluation of right upper abdominal pain. She describes the pain as sharp, radiating into her right mid back, constant, aggravated by palpation, and no alleviating factors. She reports onset over the last few days. It is accompanied by nausea without vomiting. Denies diarrhea, fever, chills, body aches. The patient denies any previous abdominal surgeries beyond a . Initial VS at presentation: 97.9? F, HR 70, RR 16, 121/63, and 100% on RA. ED workup showed: No leukocytosis, no anemia, no significant electrolyte derangements, creatinine 0.74 and GFR >60, UA unremarkable. RUQ ultrasound showed a normal right upper quadrant ultrasound and no etiology for the patient's positive sonographic Gustafson sign. Review of Systems Review of Systems: All systems reviewed & are unremarkable except as noted in HPI and below PMFSH Past Medical History Medical History Depression Anxiety Allergies Elbow injury delivery delivered Surgical History Surgical History History of section Family History Family History Father Hypertension Grandparent Alcoholism Cancer Social History Social History Smoking status: Current every day smoker Tobacco type: e-cigarettes/vaping Alcohol intake: current Drinks per week: 4 Alcohol use details: beer/wine Substance use: current Do You Feel Safe in your Home?: Yes Lack of Transportation: No Lack of Food: Never True Current Housing: I Have Housing Concerned About Future Housing: No Difficulty Paying Gas/Electric Bills: No Difficulty Paying for Meds: No Currently Unemployed: No Education: Bachelor's Degree Difficulty w/ Childcare or Family Care: No Living arrangements: with family Occupation/Education: occupation Additional occupation/education comments: real estate Gender identity (if verbalized by the patient): Female Sexual Orientation (if Verbalized by the Patient): Straight or Heterosexual Spiritual care concerns: No Meds Home Medications and Allergies Home Medications ?Medication ?Instructions ?Recorded ?Confirmed ?Type No Home Medications 06/23/24 06/23/24 History Allergies Allergy/AdvReac Type Severity Reaction Status Date / Time morphine Allergy Intermediate Itching Verified 06/23/24 19:09 Vital Signs Vital Signs - 24 hr 06/23/24 13:07 06/23/24 13:53 06/23/24 15:44 Temperature 97.9 F Pulse Rate 70 61 58 L Respiratory Rate 16 16 18 Blood Pressure 121/63 123/74 112/64 Pulse Oximetry 100 100 100 Oxygen Delivery Room Air Exam Const: General: no acute distress Other: , female, uncomfortable HENMT: Face/Nose/Sinus: Normal nares present Mouth: Yes moist mucous membranes Eyes: General: appearance normal, both eyes and all related structures Sclera: sclerae normal Pupils: Equal, round and reactive pupils present EOM: EOMs intact bilaterally Resp: Effort & Inspection: normal respiratory effort Auscultation: clear to auscultation bilaterally Cardio: Rate: regular rate Rhythm: regular rhythm Other: S1-S2 present without murmur, rub, ectopy GI: Other: Abdomen soft, nondistended. Exquisitely tender in the epigastric region. Normoactive bowel sounds in all quadrants. Skin: General skin exam: normal color and no rashes or lesions noted Wounds: no wounds Neuro: Speech: normal speech Motor exam (neuro): 5/5 motor strength present throughout Sensory Exam: normal sensation Other: A&O x4 Extrem: General: normal to inspection Psych: Mental Status: mental status grossly normal Affect: normal affect Other: Good insight and judgment, pleasant H&P: Results Labs Labs: Short CBC 06/23/24 Range/Units 13:33 WBC 7.5 (4.5-10.0) K/mm3 Hgb 15.0 (12.0-15.0) g/dL Hct 45.6 (37.0-47.0) % Plt Count 325 D (150-375) k/mm3 BMP 06/23/24 13:33 Sodium 139 Potassium 3.9 Chloride 103 Carbon Dioxide 26 BUN 13 Creatinine 0.74 Glucose 90 Calcium 9.2 Liver Function 06/23/24 Range/Units 13:33 Total Bilirubin 0.4 (0.2-1.3) mg/dL AST 23 (14-36) U/L ALT 17 (6-35) U/L Alkaline Phosphatase 63 (38-126) U/L Albumin 4.5 (3.5-5.1) g/dL Urine 06/23/24 Range/Units 13:38 Urine Color Yellow (Yellow) Urine Appearance Clear (Clear) Urine pH 5.5 (5.0-9.0) Ur Specific [place] 1.021 (1.001-1.035) Urine Protein Negative (Negative) mg/dL Urine Glucose (UA) Negative (Negative) mg/dL Assessment and Plan Assessment and plan (1) Right upper quadrant abdominal pain: Code(s): R10.11 - Right upper quadrant pain Status: Acute Assessment and Plan: - US RUQ: Normal right upper quadrant ultrasound. No etiology for the positive sonographic Gustafson sign. - LFTs and lipase WNL - GI consulted, awaiting formal recs - check HIDA scan - NPO at midnight - analgesics and antiemetics p.r.n. - monitor labs Plan The patient was given morphine as an analgesic IV, developed itching and facial flushing. Famotidine p.o. and Benadryl 25 mg IV x1 given. Plan for repeat dose of 25 mg of Benadryl IV in 5-10 minutes if she does not began experiencing relief from symptoms. Diet: Heart healthy, NPO midnight GI Prophylaxis: Not currently indicated DVT Prophylaxis: Low risk Lines: Peripheral Code Status: Full code Quality If No VTE Prophylaxis Answer both mechanical and pharmacologic: Reason no mechanical VTE proph: low risk/not indicated Reason no pharmacologic proph: low risk/not indicated Hospitalist [facility] Advance Care Plan I have confirmed that the patient's Advanced Care Plan is present, code status is documented, or surrogate decision maker is listed in patient medical record.: Yes Medication Reconciliation I have utilized all available resources to obtain, update and review the patients current medications (includes all prescriptions, OTC, herbals, cannabis, and nutritional supplements).: Yes
--- NOTE | 2024-06-23 17:32 | PC.NURSE ---
Dinner tray ordered, informed to send to room 300.
[2024-06-23 17:41] VITALS: BMI 34.9
--- NOTE | 2024-06-23 18:17 | ADMGEN ---
This patient, Suzanna Mack, was admitted to [address] [facility] Surg Room 300-01. Patient/family oriented to hospital policies and general routines including ID bracelet, bed and alarms, visiting hours, pain management, procedures, bathroom and other care routines, personal items, smoking policy, room service/diet, and visiting hours. Information on how to activate the Rapid Response Team has been discussed. Patient/Family are encouraged to report perceived risks to care and to ask questions if they do not understand what they are told or what they should do.
[2024-06-23] MEDS: diphenhydrAMINE HCl INJ 50 MG/ML VIAL (19:19)
[2024-06-23] MEDS: FAMOTIDINE 20 MG TABLET PO (19:23)
[2024-06-23] MEDS: KETOROLAC 30 MG/ML VIAL (*BKC) IV PUSH (20:54)
[2024-06-23 20:56] VITALS: BP 107/67; PULSE 59; RESP 14; TEMP 36.2; O2SAT 96
[2024-06-24 06:00] VITALS: BP 101/51; PULSE 50; RESP 12; TEMP 36.3; O2SAT 96
[2024-06-24] MEDS: KETOROLAC 30 MG/ML VIAL (*BKC) IV PUSH (06:21)
[2024-06-24 06:43] LABS: Basophils Percent Auto 0.8 % (0.2-1.2); Eosinophils Absolute Auto 0.2 K/mm3 (0-0.3); Eosinophils Percent Auto 3.2 % (0-4.4); Hematocrit 40.7 % (37.0-47.0); Hemoglobin 13.5 g/dL (12.0-15.0); Immature Granulocyte Absolute 0.01 K/mm3 (0.00-0.031); Immature Granulocyte Percent A 0.2 % (0-0.5); Lymphocytes Absolute Auto 2.21 K/mm3 (0.9-3.2); Lymphocytes Percent Auto 41.8 % (18.3-44.2); Mean Corpuscular HGB Conc 33.2 g/dl (32-36); Mean Corpuscular Hemoglobin 29.9 pg (26-34); Mean Corpuscular Volume 90.2 fl (80-100); Mean Platelet Volume 9.9 fl (7.4-10.4); Monocytes Absolute Auto 0.8 K/mm3 (0.1-0.6); Monocytes Percent Auto 14.6 % (2.6-8.5); Neutrophils Absolute Auto 2.1 K/mm3 (1.3-6.7); Neutrophils Percent Auto 39.4 % (45.5-73.1); Platelet Count Result 283 k/mm3 (150-375); Red Blood Count 4.51 M/mm3 (4.2-5.4); Red Cell Distribution Width 13.6 % (11.5-14.5); White Blood Count 5.3 K/mm3 (4.5-10.0)
[2024-06-24 06:47] LABS: Alanine Aminotransferase 14 U/L (6-35); Albumin Level 3.5 g/dL (3.5-5.1); Alkaline Phosphatase 53 U/L (38-126); Anion Gap 6 mmol/L (4-12); Aspartate Amino Transferase 19 U/L (14-36); Bilirubin,Total 0.3 mg/dL (0.2-1.3); Blood Urea Nitrogen 11 mg/dL (7-17); Calcium 8.5 mg/dL (8.4-10.2); Carbon Dioxide 27 mmol/L (22-30); Chloride 104 mmol/L (98-107); Estimated CRCL calculation 114 ml/min; Estimated Glomerular Filt Rate > 60; Glucose 94 mg/dL (65-110); Potassium 4.1 mmol/L (3.4-5.0); Sodium 137 mmol/L (137-145)
--- NOTE | 2024-06-24 08:51 | PM.IMPN ---
Progress Note: A&P Assessment and Plan (1) Right upper quadrant abdominal pain: Code(s): R10.11 - Right upper quadrant pain Status: Acute Assessment and Plan: - US RUQ: Normal right upper quadrant ultrasound. No etiology for the positive sonographic Gustafson sign. - LFTs and lipase WNL - GI consulted, awaiting formal recs - NPO at midnight - analgesics and antiemetics p.r.n. - monitor labs -- HIDA scan today Plan The patient was given morphine as an analgesic IV, developed itching and facial flushing. Famotidine p.o. and Benadryl 25 mg IV x1 given. Plan for repeat dose of 25 mg of Benadryl IV in 5-10 minutes if she does not began experiencing relief from symptoms. Diet: Heart healthy, NPO midnight GI Prophylaxis: Not currently indicated DVT Prophylaxis: Low risk Lines: Peripheral Code Status: Full code Time Spent With Patient Time with patient: 25 - 35 minutes Subjective Date/time seen: 06/24/24 08:51 Interval history: 34 y/o F presents here with abdominal pain with PMH of anxiety and depression. The patient presents here from a local urgent care for further evaluation of right upper abdominal pain. She describes the pain as sharp, radiating into her right mid back, constant, aggravated by palpation, and no alleviating factors. She reports onset over the last few days. It is accompanied by nausea without vomiting. Denies diarrhea, fever, chills, body aches. The patient denies any previous abdominal surgeries beyond a .: In ED: VS stable, No leukocytosis, no anemia,electrolytes ok, cr/bun wnl, UA unremarkable. RUQ ultrasound showed a normal right upper quadrant ultrasound and no etiology for the patient's positive sonographic Gustafson sign. Hida scan today. Gi consulted. Review of Systems Review of Systems: All systems reviewed & are unremarkable except as noted in HPI and below Exam Narrative: tender in the epigastric region Const: General: no acute distress Other: , female, uncomfortable HENMT: Face/Nose/Sinus: Normal nares present Mouth: Yes moist mucous membranes Eyes: General: appearance normal, both eyes and all related structures Sclera: sclerae normal Pupils: Equal, round and reactive pupils present EOM: EOMs intact bilaterally Resp: Effort & Inspection: normal respiratory effort Auscultation: clear to auscultation bilaterally Cardio: Rate: regular rate Rhythm: regular rhythm Other: S1-S2 present without murmur, rub, ectopy GI: Other: Abdomen soft, nondistended. Exquisitely tender in the epigastric region. Normoactive bowel sounds in all quadrants. Skin: General skin exam: normal color and no rashes or lesions noted Wounds: no wounds Neuro: Cranial nerves: Yes Equal, round and reactive pupils present Speech: normal speech Motor exam (neuro): 5/5 motor strength present throughout Sensory Exam: normal sensation Other: A&O x4 Extrem: General: normal to inspection Psych: Mental Status: mental status grossly normal Affect: normal affect Other: Good insight and judgment, pleasant Objective Data Vital Signs Vital Signs: Vital Signs - 24 hr 06/23/24 13:07 06/23/24 13:53 06/23/24 15:44 Temperature 97.9 F Pulse Rate 70 61 58 L Respiratory Rate 16 16 18 Blood Pressure 121/63 123/74 112/64 Pulse Oximetry 100 100 100 Oxygen Delivery Room Air 06/23/24 20:00 06/23/24 20:56 06/24/24 06:00 Temperature 97.1 F L 97.3 F L Pulse Rate 59 L 50 L Respiratory Rate 14 12 Blood Pressure 107/67 101/51 L Pulse Oximetry 96 96 Oxygen Delivery Room Air Intake/Output Intake/Output: Intake & Output 06/21/24 06/22/24 06/23/24 06/24/24 23:59 23:59 23:59 23:59 Intake Total 1000 300 Balance 1000 300 Meds/Results Medications: Active Medications Generic Name Dose Route Start Last Admin Trade Name Freq PRN Reason Stop Dose Admin Acetaminophen 650 mg 06/23/24 16:29 Acetaminophen 325 Mg Tablet PO Q4H PRN Mild Pain (1-3) or Fever Diphenhydramine HCl 25 mg 06/23/24 19:08 Diphenhydramine Hcl Inj 50 Mg/Ml Vial IV PUSH Q5M PRN Allergic Reaction Fentanyl Citrate 25 mcg 06/23/24 19:11 Fentanyl Citrate Inj (*Crx) 100 Mcg/2 Ml Vial IV PUSH Q4H PRN Pain Rated 7-10 Ketorolac Tromethamine 30 mg 06/23/24 19:54 06/24/24 06:21 Ketorolac 30 Mg/Ml Vial (*Bkc) IV PUSH 06/24/24 23:00 30 mg Q6H PRN Administration Pain Rated 4-6 Ondansetron HCl 4 mg 06/23/24 16:29 Ondansetron Inj 4 Mg/2 Ml Vial IV PUSH Q4H PRN Nausea Radiology Results: ITS Impressions Upper Quadrant Ultrasound 06/23/24 14:32 IMPRESSION: 1. Normal right upper quadrant ultrasound. No etiology for the positive sonographic Gustafson sign. Labs Labs: Laboratory Results - last 24 hr 06/23/24 06/23/24 06/24/24 13:33 13:38 06:08 WBC 7.5 5.3 RBC 5.02 4.51 Hgb 15.0 13.5 Hct 45.6 40.7 MCV 90.8 90.2 MCH 29.9 29.9 MCHC 32.9 33.2 RDW 13.7 13.6 Plt Count 325 D 283 MPV 10.0 9.9 Immature Gran % (Auto) 0.4 0.2 Neut % (Auto) 63.8 39.4 L Lymph % (Auto) 23.1 41.8 [place] % (Auto) 10.6 H 14.6 H Eos % (Auto) 1.7 3.2 Baso % (Auto) 0.4 0.8 Lymph # (Auto) 1.72 2.21 [place] # (Auto) 0.8 H 0.8 H Eos # (Auto) 0.1 0.2 Baso # (Auto) 0.0 0.0 Abs Immat Gran (auto) 0.03 0.01 Absolute Neuts (auto) 4.8 2.1 Absolute Nucleated RBC 0.000 0.000 Nucleated RBC % 0.0 0.0 Sodium 139 137 Potassium 3.9 4.1 Chloride 103 104 Carbon Dioxide 26 27 Anion Gap 10 6 BUN 13 11 Creatinine 0.74 0.78 Estim Creat Clear Calc 118 114 Estimated GFR > 60 > 60 Glucose 90 94 Calcium 9.2 8.5 Total Bilirubin 0.4 0.3 AST 23 19 ALT 17 14 Alkaline Phosphatase 63 53 Total Protein 8.0 6.0 L Albumin 4.5 3.5 Lipase 100 Urine Color Yellow Urine Appearance Clear Urine pH 5.5 Ur Specific [place] 1.021 Urine Protein Negative Urine Glucose (UA) Negative Urine Ketones Negative Ur Blood (Man) Negative Urine Nitrate Negative Urine Bilirubin Negative Urine Urobilinogen 0.2 Leukocyte Esterase Rfl Negative Urine Test Negative
[2024-06-24 13:55] VITALS: BP 117/74; PULSE 62; RESP 16; TEMP 36.4; O2SAT 98
[2024-06-24] MEDS: ACETAMINOPHEN 325 MG TABLET 650 MG PO (15:48)
--- NOTE | 2024-06-24 16:53 | P.CONGI_ITS ---
Assessment and Plan Assessment and plan (1) Biliary dyskinesia: Code(s): K82.8 - Other specified diseases of gallbladder Status: Acute Assessment and Plan: Based on clinical and imaging findings, the differential diagnosis for her abdominal pain includes biliary dyskinesia and pain secondary to constipation/fecal impaction. We discussed the treatment options in detail, and a shared decision was made to initiate aggressive bowel evacuation with 3-4 doses of MiraLAX tonight, with the goal of achieving a satisfactory bowel movement. If the abdominal pain persists despite this intervention, biliary dyskinesia will be considered the most likely cause. However, we emphasized that cholecystectomy is not routinely indicated after a single episode. We thoroughly discussed the potential for persistent pain following cholecystectomy, including the risk of sphincter of Oddi dysfunction and other post-surgical complications. She demonstrated understanding and agreed to a trial of conservative management, with plans to reconsider laparoscopic cholecystectomy if she experiences recurrent and consistent episodes of abdominal pain. Plan - discharge home - Miralax 17 g every 4 hours tonight until achieving adequate BM - Follow up GI clinic GI Consult Note Consult date/time: 06/24/24 16:54 HPI: Suzanna Mack, a 34-year-old female, presented to the emergency department last evening with a chief complaint of persistent, severe right upper quadrant abdominal pain, which radiated to her back. The pain began the previous evening and was not associated with fever, jaundice, nausea, vomiting, or altered bowel habits. This was her first experience with this type of pain. Her medical history is significant for chronic constipation, characterized by 1-2 bowel movements per week, typically of Warren stool type 1-2. She was admitted for further evaluation and observation. Initial investigations, including an emergency department ultrasound and laboratory studies, were unremarkable. A HIDA scan performed this morning revealed a markedly reduced gallbladder ejection fraction of 6% (normal >50%). A CT scan of the abdomen and pelvis showed a significant fecal retined material. While initially stable following admission, the patient experienced a recurrence of her abdominal pain after consuming a meal this afternoon. Review of Systems 2 Review of Systems: All systems reviewed & are unremarkable except as noted in HPI and below PMFSH Past Medical History Medical History Depression Anxiety Allergies Elbow injury delivery delivered Surgical History Surgical History History of section Family History Family History Father Hypertension Grandparent Alcoholism Cancer Social History Social History Smoking status: Current every day smoker Tobacco type: e-cigarettes/vaping Alcohol intake: current Drinks per week: 4 Alcohol use details: beer/wine Substance use: current Do You Feel Safe in your Home?: Yes Lack of Transportation: No Lack of Food: Never True Current Housing: I Have Housing Concerned About Future Housing: No Difficulty Paying Gas/Electric Bills: No Difficulty Paying for Meds: No Currently Unemployed: No Education: Bachelor's Degree Difficulty w/ Childcare or Family Care: No Living arrangements: with family Occupation/Education: occupation Additional occupation/education comments: real estate Gender identity (if verbalized by the patient): Female Sexual Orientation (if Verbalized by the Patient): Straight or Heterosexual Spiritual care concerns: No Meds Home Medications and Allergies Home Medications ?Medication ?Instructions ?Recorded ?Confirmed ?Type No Home Medications 06/23/24 06/23/24 History Allergies Allergy/AdvReac Type Severity Reaction Status Date / Time morphine Allergy Intermediate Itching Verified 06/23/24 19:09 Vital Signs Vital Signs - 24 hr 06/23/24 20:00 06/23/24 20:56 06/24/24 06:00 Temperature 97.1 F L 97.3 F L Pulse Rate 59 L 50 L Respiratory Rate 14 12 Blood Pressure 107/67 101/51 L Pulse Oximetry 96 96 Oxygen Delivery Room Air 06/24/24 07:30 06/24/24 13:55 Temperature 97.6 F Pulse Rate 62 Respiratory Rate 16 Blood Pressure 117/74 Pulse Oximetry 98 Oxygen Delivery Room Air Exam 2 Narrative: GENERAL: Well-appearing, well-nourished, and in no acute distress. HEAD: Normocephalic, atraumatic. ENT: Mucous membranes moist. CHEST: Clear to auscultation. No respiratory distress. HEART: Regular rate and rhythm. Normal peripheral pulses. ABDOMEN: Soft, tender to palpation right upper quadrant with guarding, nondistended. EXTREMITIES: Normal range of motion. No edema. SKIN: Warm, dry, no rash. NEURO: Alert and oriented x3. PSYCH: Normal mood and affect. Results Labs 06/24/24 06:08 06/24/24 06:08 Labs: Short CBC 06/24/24 Range/Units 06:08 WBC 5.3 (4.5-10.0) K/mm3 Hgb 13.5 (12.0-15.0) g/dL Hct 40.7 (37.0-47.0) % Plt Count 283 (150-375) k/mm3 BMP 06/24/24 06:08 Sodium 137 Potassium 4.1 Chloride 104 Carbon Dioxide 27 BUN 11 Creatinine 0.78 Glucose 94 Calcium 8.5 Liver Function 06/24/24 Range/Units 06:08 Total Bilirubin 0.3 (0.2-1.3) mg/dL AST 19 (14-36) U/L ALT 14 (6-35) U/L Alkaline Phosphatase 53 (38-126) U/L Albumin 3.5 (3.5-5.1) g/dL
--- NOTE | 2024-06-24 18:24 | PC.NURSE ---
Spoke with hospitalist, Dr Murphy regarding GI recommend d/c to home and he stated he'd review the chart when he got home and d/c.
--- NOTE | 2024-06-24 19:25 | PM.DS ---
DS: Admitting Diagnosis Discharge Date 06/24 <Ktaie Macdonald, PORCELAIN ENAMELER - Last Filed: 06/27/24 07:30> Admitting Diagnosis MARTHA pain <Katieruth Macdonald, PORCELAIN ENAMELER - Last Filed: 06/27/24 07:30> DS: Discharge Diagnosis Discharge Diagnosis (1) Right upper quadrant abdominal pain: Code(s): R10.11 - Right upper quadrant pain <Misael Murphy MD - Last Filed: 06/24/24 19:25> Status: Acute <Misael Murphy MD - Last Filed: 06/24/24 19:25> DS: Summary Hospital Course Hospital Course: 34 y/o F presents here with abdominal pain with PMH of anxiety and depression. The patient presents here from a local urgent care for further evaluation of right upper abdominal pain. She describes the pain as sharp, radiating into her right mid back, constant, aggravated by palpation, and no alleviating factors. She reports onset over the last few days. It is accompanied by nausea without vomiting. Denies diarrhea, fever, chills, body aches. The patient denies any previous abdominal surgeries beyond a .: In ED: VS stable, No leukocytosis, no anemia,electrolytes ok, cr/bun wnl, UA unremarkable. RUQ ultrasound showed a normal right upper quadrant ultrasound and no etiology for the patient's positive sonographic Gustafson sign. Hida scan completed. Gi consulted. See GI NOte: Based on clinical and imaging findings, the differential diagnosis for her abdominal pain includes biliary dyskinesia and pain secondary to constipation/fecal impaction. We discussed the treatment options in detail, and a shared decision was made to initiate aggressive bowel evacuation with 3-4 doses of MiraLAX tonight, with the goal of achieving a satisfactory bowel movement. If the abdominal pain persists despite this intervention, biliary dyskinesia will be considered the most likely cause. However, we emphasized that cholecystectomy is not routinely indicated after a single episode. We thoroughly discussed the potential for persistent pain following cholecystectomy, including the risk of sphincter of Oddi dysfunction and other post-surgical complications. She demonstrated understanding and agreed to a trial of conservative management, with plans to reconsider laparoscopic cholecystectomy if she experiences recurrent and consistent episodes of abdominal pain. Plan - discharge home - Miralax 17 g every 4 hours tonight until achieving adequate BM - Follow up GI clinic . Note that pt was discharged per DR Murphy as she was cleared to go home per GI later in the day. <Katie Macdonald APRN - Last Filed: 06/27/24 07:30> Status at Discharge Functional status at discharge: independent ambulation <Katie Macdonald APRN - Last Filed: 06/27/24 07:30> Overall status at discharge: patient is progressing back to baseline <Katie Macdonald APRN - Last Filed: 06/27/24 07:30> Time Spent with Patient Time attestation: Total time spent providing and/or coordinating discharge services: <Misael Murphy MD - Last Filed: 06/24/24 19:25> Time spent: Less than 30 minutes <Katie Macdonald APRN - Last Filed: 06/27/24 07:30> Exam Narrative: tender in the epigastric region <Katie Macdonald APRN - Last Filed: 06/27/24 07:30> Const: General: no acute distress <Katie Macdonald APRN - Last Filed: 06/27/24 07:30> Other: , female, uncomfortable <Katie Macdonald APRN - Last Filed: 06/27/24 07:30> HENMT: Face/Nose/Sinus: Normal nares present <Katie Macdonald APRN - Last Filed: 06/27/24 07:30> Mouth: Yes moist mucous membranes <Katie Macdonald APRN - Last Filed: 06/27/24 07:30> Eyes: General: appearance normal, both eyes and all related structures <Katie Macdonald APRN - Last Filed: 06/27/24 07:30> Sclera: sclerae normal <Katie Macdonald APRN - Last Filed: 06/27/24 07:30> Pupils: Equal, round and reactive pupils present <Katie Macdonald APRN - Last Filed: 06/27/24 07:30> EOM: EOMs intact bilaterally <Katie Macdonald APRN - Last Filed: 06/27/24 07:30> Resp: Effort & Inspection: normal respiratory effort <Katie Macdonald APRN - Last Filed: 06/27/24 07:30> Auscultation: clear to auscultation bilaterally <Katie Macdonald PORCELAIN ENAMELER - Last Filed: 06/27/24 07:30> Cardio: Rate: regular rate <Katie Macdonald PORCELAIN ENAMELER - Last Filed: 06/27/24 07:30> Rhythm: regular rhythm <Katie Macdonald PORCELAIN ENAMELER - Last Filed: 06/27/24 07:30> Other: S1-S2 present without murmur, rub, ectopy <Katie Macdonald PORCELAIN ENAMELER - Last Filed: 06/27/24 07:30> GI: Other: Abdomen soft, nondistended. Exquisitely tender in the epigastric region. Normoactive bowel sounds in all quadrants. <Katie Macdonald APRN - Last Filed: 06/27/24 07:30> Skin: General skin exam: normal color and no rashes or lesions noted <Katie Macdonald APRN - Last Filed: 06/27/24 07:30> Wounds: no wounds <Katie Macdonald PORCELAIN ENAMELER - Last Filed: 06/27/24 07:30> Neuro: Cranial nerves: Yes Equal, round and reactive pupils present <Katie Macdonald APRN - Last Filed: 06/27/24 07:30> Speech: normal speech <Katie Macdonald PORCELAIN ENAMELER - Last Filed: 06/27/24 07:30> Motor exam (neuro): 5/5 motor strength present throughout <Katie Macdonald APRN - Last Filed: 06/27/24 07:30> Sensory Exam: normal sensation <Katie Macdonald APRN - Last Filed: 06/27/24 07:30> Other: A&O x4 <Katie Macdonald APRN - Last Filed: 06/27/24 07:30> Extrem: General: normal to inspection <Katie Macdonald APRN - Last Filed: 06/27/24 07:30> Psych: Mental Status: mental status grossly normal <Katie Macdonald APRN - Last Filed: 06/27/24 07:30> Affect: normal affect <Katie Macdonald APRN - Last Filed: 06/27/24 07:30> Other: Good insight and judgment, pleasant <Katie Macdonald APRN - Last Filed: 06/27/24 07:30> DS: Data Data Completed and Pending Completed studies during hospitalization: abd pelvis ct, hida scan ultrasound <Katie Macdonald APRN - Last Filed: 06/27/24 07:30> Labs on day of discharge: Labs from last 24 hours 06/24/24 06:08 WBC 5.3 RBC 4.51 Hgb 13.5 Hct 40.7 MCV 90.2 MCH 29.9 MCHC 33.2 RDW 13.6 Plt Count 283 MPV 9.9 Immature Gran % (Auto) 0.2 Neut % (Auto) 39.4 L Lymph % (Auto) 41.8 [place] % (Auto) 14.6 H Eos % (Auto) 3.2 Baso % (Auto) 0.8 Lymph # (Auto) 2.21 [place] # (Auto) 0.8 H Eos # (Auto) 0.2 Baso # (Auto) 0.0 Abs Immat Gran (auto) 0.01 Absolute Neuts (auto) 2.1 Absolute Nucleated RBC 0.000 Nucleated RBC % 0.0 Sodium 137 Potassium 4.1 Chloride 104 Carbon Dioxide 27 Anion Gap 6 BUN 11 Creatinine 0.78 Estim Creat Clear Calc 114 Estimated GFR > 60 Glucose 94 Calcium 8.5 Total Bilirubin 0.3 AST 19 ALT 14 Alkaline Phosphatase 53 Total Protein 6.0 L Albumin 3.5 <Misael Murphy MD - Last Filed: 06/24/24 19:25> Discharge Plan Discharge Attending physician on discharge: Sherman Dean <Misael Murphy MD - Last Filed: 06/24/24 19:25> Sherman Dean <Katie Macdonald APRN - Last Filed: 06/27/24 07:30> Consulting providers: Heike Delcid; Katie Macdonald; Miguel Chino; Adeel Lewis; Simeon Heredia V. <Misael Murphy MD - Last Filed: 06/24/24 19:25> Discharging Clinician: Misael Murphy <Misael Murphy MD - Last Filed: 06/24/24 19:25> Misael Murphy <Katie Macdonald APRN - Last Filed: 06/27/24 07:30> Patient Disposition: Home, Self-Care <Misael Murphy MD - Last Filed: 06/24/24 19:25> Activity: as tolerated <Misael Murphy MD - Last Filed: 06/24/24 19:25> as tolerated <Katie Macdonald APRN - Last Filed: 06/27/24 07:30> Diet: high fiber <Misael Murphy MD - Last Filed: 06/24/24 19:25> high fiber <Katie Macdonald APRN - Last Filed: 06/27/24 07:30> Discharge Instructions: Per Care Coordination: Please call [facility] [phone] to get set up with a primary care provider if do not currently have one. patient to follow discharge care instruction from her GI and follow as scheduled, patient to follow up with primary care provider as soon as possible, patient is instructed if any symptoms worsen to go to nearest ER discharge home - Miralax 17 g every 4 hours tonight until achieving adequate BM - Follow up GI clinic <Misael Murphy MD - Last Filed: 06/24/24 19:25> Patient Instructions: Antibiotic Form <Misael Murphy MD - Last Filed: 06/24/24 19:25> Patient Language: Maltese <Misael Murphy MD - Last Filed: 06/24/24 19:25> Stand Alone Forms: General Discharge Information <Misael Murphy MD - Last Filed: 06/24/24 19:25> Follow-up/Referrals: Miguel Chino MD [Physician] - UNKNOWN,DOCTOR [Primary Care Provider] - <Misael Murphy MD - Last Filed: 06/24/24 19:25> Discharge Medications: No Action No Home Medications <Misael Murphy MD - Last Filed: 06/24/24 19:25> Date of admission: 06/23/24 16:29 <Misael Murphy MD - Last Filed: 06/24/24 19:25> Primary Care Provider: UNKNOWN,DOCTOR <Misael Murphy MD - Last Filed: 06/24/24 19:25> Admitting Provider: Sherman Dean <Misael Murphy MD - Last Filed: 06/24/24 19:25> Attending physician on admission: Misael Murphy <Misael Murphy MD - Last Filed: 06/24/24 19:25> Condition: Stable <Misael Murphy MD - Last Filed: 06/24/24 19:25> Hospitalist MIPS Heart Failure (Exclusion) Patient has history of Heart Transplant or Left Ventricular Assistive Device?: No <Katie Macdonald APRN - Last Filed: 06/27/24 07:30> IF YES, STOP HERE: Heart Failure (Qualifier) Patient has current or prior documentation of LVEF less than or equal to 40%, or mod/servere depressed LVSF?: No <Katie Macdonald APRN - Last Filed: 06/27/24 07:30> IF NO, STOP HERE:
--- OUTSIDE RECORDS SUMMARY | 2024-06-25 12:15 | XMS_ITS | Referral Summary ---
Author Organization [facility] Address [address] [place] [address] Care Team Providers Care Toll Transmission Worker Name Role Phone Unavailable Primary Care Provider Unavailabl e Source Comments [facility],non-owned Affiliates and Associated Physician Practices is amultiple site organization consisting of ambulatory clinics and hospital sitesin [place], [place], [place] and [place]. This disclosure is being madepursuant to the Care Everywhere program and may not contain all information available regarding this patient. Last updated 18.[facility] Allergies No known active allergies Medications Be [...] Comments Blood Pressure 120/80 05/13/2018 12:18 PM DIRECTOR CHILD ABUSE THERAPY Pulse 65 05/13/2018 12:18 PM DIRECTOR CHILD ABUSE THERAPY Temperature 37.2 C (98.9 F) 05/13/2018 12:18 PM DIRECTOR CHILD ABUSE THERAPY Respiratory Rate 20 05/13/2018 12:18 PM DIRECTOR CHILD ABUSE THERAPY Oxygen Saturation 99% 05/13/2018 12:18 PM DIRECTOR CHILD ABUSE THERAPY Inhaled Oxygen Concentration - - Weight 90.7 kg (200 lb) 05/13/2018 12:18 PM DIRECTOR CHILD ABUSE THERAPY Height 175.3 cm (5' 9 ) 05/13/2018 12:18 PM DIRECTOR CHILD ABUSE THERAPY Body Mass Index 29.53 05/13/2018 12:18 PM DIRECTOR CHILD ABUSE THERAPY Plan of Treatment Not on file [id number] Workers Comp Employer [address] [place] [address]
--- OUTSIDE RECORDS SUMMARY | 2024-06-25 12:15 | XMS_ITS | Patient Health Summary ---
Author Organization [facility] [employer] Address [address] [place] [address] Care Team Providers Care Cupola Tender Name Role Phone Unavailable Primary Care Provider Unavailabl e Note from [facility],non-owned Affiliates and Associated Physician Practices is amultiple site organization consisting of ambulatory clinics and hospital sitesin [place], [place], [place] and [place]. This disclosure is being madepursuant to the Care Everywhere program and may not contain all information available regarding this patient. Last updated 18.[facility] [employer] Allergies No known active allergies Medications Be [...] Comments Blood Pressure 120/80 05/13/2018 12:18 PM WINDOW TREATMENT INSTALLER Pulse 65 05/13/2018 12:18 PM WINDOW TREATMENT INSTALLER Temperature 37.2 C (98.9 F) 05/13/2018 12:18 PM WINDOW TREATMENT INSTALLER Respiratory Rate 20 05/13/2018 12:18 PM WINDOW TREATMENT INSTALLER Oxygen Saturation 99% 05/13/2018 12:18 PM WINDOW TREATMENT INSTALLER Inhaled Oxygen Concentration - - Weight 90.7 kg (200 lb) 05/13/2018 12:18 PM WINDOW TREATMENT INSTALLER Height 175.3 cm (5' 9 ) 05/13/2018 12:18 PM WINDOW TREATMENT INSTALLER Body Mass Index 29.53 05/13/2018 12:18 PM WINDOW TREATMENT INSTALLER Procedures * XR SHOULDER LEFT 2VW OR MORE(Performed 05/13/2018) Performed for Acute pain of left shoulder Results * XR SHOULDER LEFT 2VW OR MORE (05/13/2018 12:07 PM WINDOW TREATMENT INSTALLER) Anatomical Region Laterality Modality Upper Extremity Radiographic Jess ging 05/13/2018 12:1 1 PM WINDOW TREATMENT INSTALLER Narrative 05/13/2018 12:12 PM WINDOW TREATMENT INSTALLER Left Shoulder 3 Views INDICATION: Left shoulder [...] on 05/13/2018 at 12:12 PM Claritza Moura APRN-KILN FURNITURE SAW TENDER DIAGNOS TIC IMAGING ORDERABLES
--- OUTSIDE RECORDS SUMMARY | 2024-06-25 12:15 | XMS_ITS | Clinical Summary ---
Author Organization [facility] [employer] Address [address] [place] [address] Care Team Providers Care Grain Farmer Name Role Phone Unavailable Primary Care Provider Unavailabl e Source Comments [facility] [employer],non-owned Affiliates and Associated Physician Practices is amultiple site organization consisting of ambulatory clinics and hospital sitesin [place], [place], [place] and [place]. This disclosure is being madepursuant to the Care Everywhere program and may not contain all information available regarding this patient. Last updated 18.[facility] [employer] Allergies No known active allergies Medications Be [...] Comments Blood Pressure 120/80 05/13/2018 12:18 PM CUSTOMER PROFESSIONAL Pulse 65 05/13/2018 12:18 PM CUSTOMER PROFESSIONAL Temperature 37.2 C (98.9 F) 05/13/2018 12:18 PM CUSTOMER PROFESSIONAL Respiratory Rate 20 05/13/2018 12:18 PM CUSTOMER PROFESSIONAL Oxygen Saturation 99% 05/13/2018 12:18 PM CUSTOMER PROFESSIONAL Inhaled Oxygen Concentration - - Weight 90.7 kg (200 lb) 05/13/2018 12:18 PM CUSTOMER PROFESSIONAL Height 175.3 cm (5' 9 ) 05/13/2018 12:18 PM CUSTOMER PROFESSIONAL Body Mass Index 29.53 05/13/2018 12:18 PM CUSTOMER PROFESSIONAL Plan of Treatment Health Maintenance Due Date [...] on patient's age to complete this topic [id number] Workers Comp Employer [address] [place] [address]
--- OUTSIDE RECORDS SUMMARY | 2024-06-25 12:15 | XMS_ITS | Clinical Summary ---
Author Organization [facility] Address [address] [place] [address] Care Team Providers Care Ems Director Name Role Phone Unavailable Primary Care Provider [...]
== END 2024-06-24 19:43 | disposition home or self-care (01) ==
LOC: ANHED 13:46 → ANH3MEDSUR 21:02
PROVIDERS: Emergency Medicine; Student in an Organized Health Care Education/Training Program; Admitting Provider Hospitalist; Emergency Provider Emergency Medicine; Visit Provider Family Medicine
DX: R10.11 Right upper quadrant pain (principal); K82.8 Other specified diseases of gallbladder; F41.9 Anxiety disorder, unspecified; F32.A Depression, unspecified; F17.290 Nicotine dependence, other tobacco product, uncomplicated
CPT/HCPCS: 36415; 74177; 76705; 78227; 80053; 81003; 81025; 83690; 85025; 96361; 96374; 96375; 96376; 99285; A9270; A9537; G0378; J1171; J1200; J1885; J2270; J2405; J2805; J7030; Q9967

== ENCOUNTER 2025-01-08 19:27 | Emergency (ER) | payer OTHER, SELFPAY ==
--- NOTE | ~2025-01-08 | US_ITS ---
EXAMINATION: US OB <=14 wk fetus w TV DATE: 01/08/2025 20:28 INDICATION: Pelvic pain. TECHNIQUE: Real-time transvaginal pelvic ultrasound was performed. COMPARISON: None. FINDINGS: The uterus measures 11.1 x 6.8 x 7.6 cm. There is an intrauterine gestational sac. A yolk sac is identified. The crown rump length measures 1.4 cm, which correlates with an estimated gestational age of 7 weeks and 5 day(s). heart motion is identified measuring 171 beats per minute (bpm) by M-mode Doppler. The right ovary measures 2.1 x 2.5 x 2.9 cm. The left ovary measures 2.2 x 2.3 x 2.5 cm. There is no free fluid in the pelvis. IMPRESSION: 1. Single living intrauterine gestation with estimated date of delivery of 08/22/2025. Reviewed, dictated and finalized at location E. IMPRESSION: 1. Single living intrauterine gestation with estimated date of delivery of 08/22.
[2025-01-08 19:29] VITALS: BP 135/80; PULSE 94; RESP 18; TEMP 36.6; O2SAT 98
--- OUTSIDE RECORDS SUMMARY | 2025-01-08 19:29 | XMS_ITS | Clinical Summary ---
Author Organization [facility] Address [address] [place] [address] Care Team Providers Care Functional Tester Name Role Phone Unavailable Primary Care Provider Unavailabl e Source Comments [facility],non-owned Affiliates and Associated Physician Practices is amultiple site organization consisting of ambulatory clinics and hospital sitesin [place], [place], [place] and [place]. This disclosure is being madepursuant to the Care Everywhere program and may not contain all information available regarding this patient. Last updated 18.[facility] [employer] Allergies No known active allergies Medications * Be aware that medications may not be up to date on this document. Alwaysverify current medications with the patient. No known medications Social History Tobacco Use Types Packs/Day Years Used Date Smoking Tobacco: Never Smokeless Tobacco: Never Comments No Sex and Gender Information Value Date Recorded Sex Assigned at Not on file Legal Sex Female 11:42 AM CARDIOVASCULAR SURGICAL TECH Gender Identity Not on file Sexual Orientation Not on file Last Filed Vital Signs Vital Sign Reading Time Taken Comments Blood Pressure 120/80 05/13/2018 12:18 PM CARDIOVASCULAR SURGICAL TECH Pulse 65 05/13/2018 12:18 PM CARDIOVASCULAR SURGICAL TECH Temperature 37.2 C (98.9 F) 05/13/2018 12:18 PM CARDIOVASCULAR SURGICAL TECH Respiratory Rate 20 05/13/2018 12:18 PM CARDIOVASCULAR SURGICAL TECH Oxygen Saturation 99% 05/13/2018 12:18 PM CARDIOVASCULAR SURGICAL TECH Inhaled Oxygen Concentration - - Weight 90.7 kg (200 lb) 05/13/2018 12:18 PM CARDIOVASCULAR SURGICAL TECH Height 175.3 cm (5' 9) 05/13/2018 12:18 PM CARDIOVASCULAR SURGICAL TECH Body Mass Index 29.53 05/13/2018 12:18 PM CARDIOVASCULAR SURGICAL TECH Plan of Treatment Health Maintenance Due Date Last Done Comments HIV SCREENING 01/28/2004 HEPATITIS C SCREENING 01/23/2007 DTAP/TDAP/TD VACCINES (1 - Tdap) 01/28/2008 HEPATITIS B VACCINE (1 of 3 - 19+ 3-dose series) 01/28/2008 HPV VACCINE (1 - 3-dose SCDM series) 01/28/2016 DEPRESSION SCREENING 04/21/2024 COVID-19 VACCINE (1 - 4-2 5 season) 2024 INFLUENZA VACCINE (#1) 2024 ZOSTER VACCINE (1 of 2) 2039 HIB VACCINE Aged Out No longer eligi ble based on patient's age to complete this topic MENINGOCOCCAL (Group B) VACC INE SHARED DECISION-MAKING Aged Out No longer eligibl e based on patient's age to complete this topic MENINGOCOCCAL GROUPS A/C/Y/W VACCINE Aged Out No longer eligible b ased on patient's age to complete this topic PNEUMOCOCCAL VACCINE Aged Out No long er eligible based on patient's age to complete this topic Insurance [facility] Address: [id number] [place] [address] PAYOR GENERIC PAYOR GENERIC
[2025-01-08 19:53] LABS: Hematocrit 42.3 % (37.0-47.0); Hemoglobin 14.2 g/dL (12.0-15.0); Immature Granulocyte Percent A 0.3 % (0-0.5); Lymphocytes Absolute Auto 2.83 K/mm3 (0.9-3.2); Mean Corpuscular HGB Conc 33.6 g/dl (32-36); Mean Corpuscular Hemoglobin 28.6 pg (26-34); Mean Corpuscular Volume 85.1 fl (80-100); Nucleated Red Blood Cells Absolute Auto 0.000 K/mm3 (0.0-0.012); Nucleated Red Blood Cells Perc 0.0 % (0.0-0.2); Platelet Count Result 347 k/mm3 (150-375); Red Blood Count 4.97 M/mm3 (4.2-5.4); White Blood Count 14.5 K/mm3 (4.5-10.0)
--- NOTE | 2025-01-08 19:54 | PC.NURSE ---
Patient taken to US via w/c at this time from waiting room.
[2025-01-08 20:05] LABS: Alanine Aminotransferase 17 U/L (6-35); Albumin Level 4.2 g/dL (3.5-5.1); Alkaline Phosphatase 61 U/L (38-126); Anion Gap 10 mmol/L (4-12); Aspartate Amino Transferase 26 U/L (14-36); Bilirubin,Total 0.2 mg/dL (0.2-1.3); Blood Urea Nitrogen 6 mg/dL (7-17); Calcium 8.5 mg/dL (8.4-10.2); Carbon Dioxide 18 mmol/L (22-30); Chloride 108 mmol/L (98-107); Estimated CRCL calculation 152 ml/min; Estimated Glomerular Filt Rate > 60; Glucose 101 mg/dL (65-110); INR 1.1; Partial Thromboplastin Time 27.9 Seconds (22.3-36.8); Potassium 3.9 mmol/L (3.4-5.0); Prothrombin Time 14.0 Seconds (11.1-14.7); Sodium 136 mmol/L (137-145); Total Protein 7.7 g/dL (6.3-8.2)
[2025-01-08 21:18] LABS: Beta HCG Quantitative > 15000.00 mIU/ML
--- NOTE | 2025-01-08 22:24 | ED.FEMALEGU ---
HPI - Female Genitourinary General Chief complaint: Vaginal Bleeding Stated complaint: 9 weeks preg, vag bleeding Time Seen by Provider: 01/08/25 21:37 History of Present Illness HPI Narrative: Patient is , at 9 weeks , presenting after she had an episode of heavy bleeding with passage of the clot, and some cramping. Related Data Home Medications ?Medication ?Instructions ?Recorded ?Confirmed ?Last Taken ?Type No Home Medications 06/23/24 01/08/25 Unknown History Allergies Allergy/AdvReac Type Severity Reaction Status Date / Time morphine Allergy Intermediate Itching Verified 01/08/25 19:32 Review of Systems Review of Systems: All systems reviewed & are unremarkable except as noted in HPI and below PMFSH Past Medical History Medical History Depression Anxiety Allergies Elbow injury delivery delivered Surgical History Surgical History History of section Family History Family History Father Hypertension Grandparent Alcoholism Cancer Social History Social History Smoking status: Current every day smoker Tobacco type: e-cigarettes/vaping Alcohol intake: current Drinks per week: 4 Alcohol use details: beer/wine Substance use: current Do You Feel Safe in your Home?: Yes Lack of Transportation: No Lack of Food: Never True Current Housing: I Have Housing Concerned About Future Housing: No Difficulty Paying Gas/Electric Bills: No Difficulty Paying for Meds: No Currently Unemployed: No Education: Bachelor's Degree Difficulty w/ Childcare or Family Care: No Living arrangements: with family Occupation/Education: occupation Additional occupation/education comments: real estate Gender identity (if verbalized by the patient): Female Sexual Orientation (if Verbalized by the Patient): Straight or Heterosexual Spiritual care concerns: No Exam Narrative: EXAMINATION OF ORGAN SYSTEMS/BODY AREAS: Constitutional: Vital signs per nursing GENERAL:[No acute distress, non-toxic appearing.] HEAD: Normal with no signs of head trauma. EYES: EOMI, conjunctiva normal ENT: Hearing grossly intact LUNGS: Nonlabored breathing. HEART: [Regular rate and rhythm] ABD: Nondistended : No active hemorrhage EXT: Normal range of motion SKIN: [No rashes or lesions.] NEURO: [Alert and oriented x 3. No gross focal sensory or strength deficits.] PSYCH: Normal affect Course Vital Signs Vital signs: Vital Signs Temperature 97.8 F 01/08/25 19:29 Pulse Rate 94 01/08/25 19:29 Respiratory Rate 18 01/08/25 19:29 Blood Pressure 135/80 01/08/25 19:29 Pulse Oximetry 98 01/08/25 19:29 Oxygen Delivery Room Air 01/08/25 19:29 Temperature 97.8 F 01/08/25 19:29 Pulse Rate 94 01/08/25 19:29 Respiratory Rate 18 01/08/25 19:29 Blood Pressure 135/80 01/08/25 19:29 Pulse Oximetry 98 01/08/25 19:29 Oxygen Delivery Room Air 01/08/25 19:29 MDM - Female Genitourinary MDM Narrative Medical decision making narrative: 34F at 9wk preg p/w VB. TVUS on my independent interpretation shows intrauterine , heart rate 171, patient is Rh positive with stable hemoglobin. I have discussed findings with patient, my concern for threatened miscarriage, with strict return precautions and follow-up to her OBGYN. Patient expresses understanding and agreement Lab Data 01/08/25 19:44 01/08/25 19:44 Labs: Lab Results 01/08/25 Range/Units 19:44 WBC 14.5 H (4.5-10.0) K/mm3 RBC 4.97 (4.2-5.4) M/mm3 Hgb 14.2 (12.0-15.0) g/dL Hct 42.3 (37.0-47.0) % MCV 85.1 (80-100) fl MCH 28.6 (26-34) pg MCHC 33.6 (32-36) g/dl RDW 13.2 (11.5-14.5) % Plt Count 347 (150-375) k/mm3 MPV 9.7 (7.4-10.4) fl Immature Gran % (Auto) 0.3 (0-0.5) % Neut % (Auto) 74.3 H (45.5-73.1) % Lymph % (Auto) 19.5 (18.3-44.2) % [place] % (Auto) 5.2 (2.6-8.5) % Eos % (Auto) 0.1 (0-4.4) % Baso % (Auto) 0.6 (0.2-1.2) % Lymph # (Auto) 2.83 (0.9-3.2) K/mm3 [place] # (Auto) 0.8 H (0.1-0.6) K/mm3 Eos # (Auto) 0.0 (0-0.3) K/mm3 Baso # (Auto) 0.1 (0.0-0.1) K/mm3 Abs Immat Gran (auto) 0.05 H (0.00-0.031) K/mm3 Absolute Neuts (auto) 10.7 H (1.3-6.7) K/mm3 Absolute Nucleated RBC 0.000 (0.0-0.012) K/mm3 Nucleated RBC % 0.0 (0.0-0.2) % PT 14.0 (11.1-14.7) Seconds INR 1.1 APTT 27.9 (22.3-36.8) Seconds Sodium 136 L (137-145) mmol/L Potassium 3.9 (3.4-5.0) mmol/L Chloride 108 H (98-107) mmol/L Carbon Dioxide 18 L (22-30) mmol/L Anion Gap 10 (4-12) mmol/L BUN 6 L D (7-17) mg/dL Creatinine 0.56 L (0.7-1.0) mg/dL Estim Creat Clear Calc 152 ml/min Estimated GFR > 60 (59 - ) Glucose 101 (65-110) mg/dL Calcium 8.5 (8.4-10.2) mg/dL Total Bilirubin 0.2 (0.2-1.3) mg/dL AST 26 (14-36) U/L ALT 17 (6-35) U/L Alkaline Phosphatase 61 (38-126) U/L Total Protein 7.7 (6.3-8.2) g/dL Albumin 4.2 (3.5-5.1) g/dL Beta HCG, Quant > 73576.00 mIU/ML Blood Type A Positive Antibody Screen Negative Screen Not Reportable Baby's Blood Type Not Reportable Baby's BINA Not Reportable Doses of RhIg Required 0 Discharge Plan Discharge Clinical Impression: Miscarriage, threatened, early Patient Disposition: Home Condition: Stable Instructions: Threatened Miscarriage (ED) Additional Instructions: Please follow-up with your OBGYN on Friday. If you start experiencing severe pain, heavy bleeding where you are soaking through 1 pad an hour for 2 hours straight, or anything else concerning, please come back to the hospital. Patient Language: Lithuanian Prescriptions: No Action No Home Medications Follow-up/Referrals: Rose Daniel MD [Primary Care Provider, [employer]]
== END 2025-01-08 22:14 | disposition home or self-care (01) ==
PROVIDERS: Emergency Provider Emergency Medicine; PCP Obstetrics & Gynecology Gynecology
DX: O20.0 Threatened abortion (principal); O99.331 Smoking (tobacco) complicating pregnancy, first trimester; F17.290 Nicotine dependence, other tobacco product, uncomplicated; Z3A.09 9 weeks gestation of pregnancy
CPT/HCPCS: 36415; 76801; 76817; 80053; 84702; 85025; 85461; 85610; 85730; 86850; 86900; 86901; 99284